=== PATIENT | male | born 1990 | race Caucasian/White ===

== ENCOUNTER 2019-03-19 06:00 | Emergency (ER) | payer OTHER ==
[~2019-03-19] VITALS: Ht 177.8 cm; Wt 71.7 kg
[2019-03-19 06:07] VITALS: Ht 177.8 cm; Wt 71.7 kg
[2019-03-19 06:52] LABS: BASOPHIL % 0.6 % (0-2); PLATELET COUNT 223 x10^3mcL (130-400); RED CELL DISTRIBUTION WIDTH 12.3 % (11.5-14.5)
[2019-03-19 07:05] LABS: CALCIUM 9.1 mg/dL (8.5-10.1); CARBON DIOXIDE 24.4 mmol/L (21-32); CHLORIDE SERUM 103 mmol/L (98-107); GFR1 > 60 mL/min; GLUCOSE SERUM 93 mg/dL (74-106); POTASSIUM SERUM 3.3 mmol/L (3.5-5.1); SODIUM SERUM 143 mmol/L (136-145)
[2019-03-19 07:10] LABS: ALBUMIN 3.9 g/dL (3.4-5.0); ALKALINE PHOSPHATASE 87 U/L (46-116); ALT/SGPT 53 U/L (16-63); AST/SGOT 60 U/L (15-37); BILIRUBIN TOTAL 0.8 mg/dL (0.20-1.00); LIPASE 96 IU/L (73-393); TOTAL PROTEIN, SERUM 7.3 g/dL (6.4-8.2)
[2019-03-19 07:41] LABS: microscopic required? NO
[2019-03-19 07:50] LABS: urine erythrocyte NEGATIVE (NEGATIVE)
[2019-03-19 08:27] LABS: FREE T4 1.09 ng/dL (0.76-1.46)
[2019-03-19 08:29] LABS: FREE THYROXINE INDEX 1.2 ug/dL (1.4-4.5); T4(THYROXINE) 2.8 ug/dL (4.7-13.3)
[2019-03-19 12:03] VITALS: BP 121/76
== END 2019-03-19 12:03 | disposition home or self-care (01) ==
LOC: ED 06:00
PROVIDERS: Emergency Medicine
DX: F10.129 Alcohol abuse with intoxication, unspecified (principal); R07.89 Other chest pain; M54.5 Low back pain; R63.0 Anorexia
CPT/HCPCS: 84439; G0480; J1885; J2405; J3490; J7030; Q0092